=== PATIENT | male | born 1980 | race American Indian/Alaskan Native ===

== ENCOUNTER 2020-02-16 19:47 | Emergency (ER) | payer SELFPAY ==
[2020-02-16 20:08] VITALS: BP 115/72
--- NOTE | 2020-02-16 21:04 | XRay Report ---
XR knee 3V LT INDICATION / CLINICAL INFORMATION: Fall.. COMPARISON: None available. FINDINGS: No acute fracture. Normal alignment. Joint spaces are preserved. No destructive osseous lesion or s uspicious periosteal reaction. Prominent tibial tubercle. Impression: 1.No acute fracture. Signer Name: Teja Velasco MD Signed: 02/16/2020 8:59 PM Workstation Name: [id number]
--- NOTE | 2020-02-16 22:49 | Emergency Department Report ---
ED Lower Extremity HPI - General Chief Complaint: Extremity Injury, Lower Stated Complaint: LEFT KNEE PAIN Time Seen by Provider: 02/16/20 22:16 Source: patient Mode of arrival: Ambulatory Limitations: No Limitations - History of Present Illness Initial Comments: 39-year-old -[place] male was skateboarding down the driveway trying to perform a trip on his left foot which was a trailer hit the concrete flexing the knee with hyper valgus movement and then striking the ground resulting in significant pain swelling and inability to ambulate. Reports no numbness or tingling, no broken skin no head trauma no chest pain or palpitations MD Complaint: knee injury -: Sudden Injury: Knee: Left Type of Injury: blunt, inversion Severity: mild, moderate Improves With: nothing Worsens With: weight bearing, movement, palpation Context: fall Associated Symptoms: swelling, unable to bear weight - Related Data Previous Rx's Medication Instructions Recorded Last Taken Type Ketorolac [Toradol] 10 mg PO Q6H PRN #14 tablet 02/16/20 Unknown Rx Allergies Allergy/AdvReac Type Severity Reaction Status Date / Time No Known Allergies Allergy Unverified 02/16/20 19:55 ED Review of Systems ROS: Stated complaint: LEFT KNEE PAIN Other details as noted in HPI Comment: All other systems reviewed and negative ED Past Medical Hx - Past Medical History Previous Medical History?: No - Surgical History Past Surgical History?: Yes Additional Surgical History: Hernia - Social History Smoking Status: Never Smoker Substance Use Type: None - Medications Home Medications: Home Medications Medication Instructions Recorded Confirmed Last Taken Type Ketorolac [Toradol] 10 mg PO Q6H PRN #14 tablet 02/16/20 Unknown Rx ED Physical Exam - General Limitations: No Limitations General appearance: alert, in no apparent distress - Head Head exam: Present: atraumatic, normocephalic - Eye Eye exam: Present: normal appearance, PERRL, EOMI - ENT ENT exam: Present: mucous membranes moist - Neck Neck exam: Present: normal inspection - Respiratory Respiratory exam: Present: normal lung sounds bilaterally. Absent: respiratory distress - Cardiovascular Cardiovascular Exam: Present: regular rate, normal rhythm. Absent: systolic murmur, diastolic murmur, rubs, gallop - GI/Abdominal GI/Abdominal exam: Present: soft, normal bowel sounds - Rectal Rectal exam: Present: deferred - Extremities Exam Extremities exam: Present: normal inspection - Expanded Lower Extremity Exam Left Knee exam: Present: tenderness (To the medial aspect with palpation and with Annie's. Pulses 2+ no popliteal mass), swelling, pain/laxity with valgus, full knee extension. Absent: abrasion, laceration, ecchymosis, dislocation, erythema, effusion, pain w/ pronation/supination - Back Exam Back exam: Present: normal inspection - Neurological Exam Neurological exam: Present: alert, oriented X3 - Psychiatric Psychiatric exam: Present: normal affect, normal mood - Skin Skin exam: Present: warm, dry, intact, normal color. Absent: rash ED Course Vital Signs 02/16/20 19:54 Temperature 98.1 F Pulse Rate 68 Respiratory 18 Rate Blood Pressure 115/72 O2 Sat by Pulse 100 Oximetry - Procedure Description Procedures done: Placed in a knee immobilizer and given crutches. Neurovascular intact tolerated well no complication ED Lower Extremity MDM - Radiology Data Radiology results: report reviewed [facility] [address] [place] [address] XRay Report Signed Patient: CAMI PIKE JR MR# : [id number] : 1980 Acct:[id number] Age/Sex: 39 / M ADM Date: 02/16/20 Loc: ED Attending Dr: Ordering Physician: SOO PRINCE MD Date of Service: 02/16/20 Procedure(s): XR knee 3V LT Accession Number(s): [id number] cc: ED MD NIKI Fluoro Time In Minutes: XR knee 3V LT INDICATION / CLINICAL INFORMATION: Fall.. COMPARISON: None available. FINDINGS: No acute fracture. Normal alignment. Joint spaces are preserved. No destructive osseous lesion or suspicious periosteal reaction. Prominent tibial tubercle. Impression: 1.No acute fracture. Signer Name: Teja Velasco MD Signed: 02/16/2020 8:59 PM Workstation Name: [id number] Transcribed By: CS Dictated By: Teja Velasco MD Electronically Authenticated By: Teja Velasco MD Signed Date/Time: 02/16/202058 DD/ 57 TD/TT: Critical care attestation.: If time is entered above; I have spent that time in minutes in the direct care of this critically ill patient, excluding procedure time. ED Disposition Clinical Impression: Knee internal derangement Disposition: DC-01 TO HOME OR SELFCARE Is pt being admited?: No Does the pt Need Aspirin: No Condition: Stable Instructions: Knee Sprain (ED), Knee Immobilizer (ED), Magnetic Resonance Imaging (ED), Knee Pain (ED) Prescriptions: Ketorolac [Toradol] 10 mg PO Q6H PRN #14 tablet PRN Reason: Pain Referrals: PRIMARY CARE, [Primary Care Provider] - 3-5 Days MARTHA MCKEON MD [Staff Physician] - 3-5 Days [facility] [Provider Group] - 3-5 Days
== END 2020-02-16 23:30 | disposition home or self-care (01) ==
LOC: ED 19:47
DX: M23.8X2 Other internal derangements of left knee (principal)
CPT/HCPCS: 99283